=== PATIENT | male | born 1995 | race Caucasian/White ===

== ENCOUNTER 2018-09-29 03:12 | Emergency (ER) | payer OTHER | END 2018-09-29 05:47 | disposition home or self-care (01) | LOC: M ED 03:12 | DX: S40.011A Contusion of right shoulder, initial encounter (principal); V86.7 Person on outside of special all-terrain or other off-road motor vehicle injured in nontraffic accident; Y92.138 Other place on military base as the place of occurrence of the external cause; Z88.8 Allergy status to other drugs, medicaments and biological substances | CPT/HCPCS: 71046 ==

== ENCOUNTER 2018-10-18 11:37 | Emergency (ER) | payer OTHER ==
[~2018-10-18] VITALS: Ht 180.3 cm; Wt 78.6 kg
[~2018-10-18 11:37] MED LIST: MULT1TAB9 PO
[2018-10-18] MEDS ORDERED: ACETAMINOPHEN 325 MG TAB PO ONE (12:30)
[2018-10-18] MEDS ORDERED: cefTRIAXone SOD 1 GM in D5W MINI-BAG PLUS 50 ML IV ONE (12:30)
[2018-10-18] MEDS ORDERED: NS 1,000 ML IV ONE (12:30)
[2018-10-18 12:42] LABS: BASO % 0.2 % (0.0-1.0); HEMATOCRIT 46.1 % (42.0-52.0); LYMPH # 0.6 10^3/uL (1.5-6.5); LYMPH % 6.4 % (24.0-44.0); MEAN CORPUSCULAR HEMOGLOBIN 28.7 pg (27.0-33.0); MEAN CORPUSCULAR HGB CONC 32.5 g/dl (32.0-36.5); MEAN CORPUSCULAR VOLUME 88.3 fl (80.0-96.0); MONO # 1.1 10^3/uL (0.0-0.8); MONO % 10.8 % (0.0-5.0); NEUTROPHILS # 8.2 10^3/uL (1.8-7.7); NEUTROPHILS % 82.2 % (36.0-66.0); PLATELET COUNT, AUTOMATED 210 10^3/uL (150-450); RED BLOOD COUNT 5.22 10^6/uL (4.30-6.10); WHITE BLOOD COUNT 9.9 10^3/uL (4.0-10.0)
[2018-10-18 13:16] LABS: BLOOD UREA NITROGEN 10 MG/DL (7-18); CREATININE FOR GFR 1.05 MG/DL (0.70-1.30); GLUCOSE, FASTING 90 MG/DL (70-100)
[2018-10-18 13:17] LABS: ALBUMIN 4.3 GM/DL (3.2-5.2); ALT/SGPT 18 U/L (12-78); BILIRUBIN,DIRECT < 0.1 MG/DL (0.0-0.2); BILIRUBIN,TOTAL 0.4 MG/DL (0.2-1.0); CALCIUM LEVEL 9.3 MG/DL (8.5-10.1); CARBON DIOXIDE LEVEL 26 MEQ/L (21-32); CHLORIDE LEVEL 103 MEQ/L (98-107); GLOMERULAR FILTRATION RATE > 60.0 (>60); POTASSIUM SERUM 4.3 MEQ/L (3.5-5.1); SODIUM LEVEL 137 MEQ/L (136-145); TOTAL PROTEIN 8.3 GM/DL (6.4-8.2)
[2018-10-18 13:47] LABS: APPEARANCE, URINE CLEAR (CLEAR); BACTERIA, URINE AUTO NEGATIVE (NEGATIVE); BILIRUBIN, URINE AUTO NEGATIVE (NEGATIVE); BLOOD, URINE BLOOD 2+ (NEGATIVE); COLOR, URINE YELLOW (YELLOW); GLUCOSE, URINE (UA) AUTO NEGATIVE (NEGATIVE); KETONE, URINE AUTO TRACE mg/dL (NEGATIVE); LEUKOCYTE ESTERASE, URINE AUTO NEGATIVE (NEGATIVE); MUCUS, URINE SMALL (NEGATIVE); NITRITE, URINE AUTO NEGATIVE (NEGATIVE); PROTEIN, URINE AUTO NEGATIVE (NEGATIVE); RBC, URINE AUTO 12 /HPF (0-3); SPECIFIC GRAVITY URINE AUTO 1.026 (1.002-1.035); SQUAMOUS EPITHELIAL CELL UR AU 0 /HPF (0-6); UROBILINOGEN, URINE AUTO 0.2 mg/dL (0.0-2.0); WBC, URINE AUTO 3 /HPF (0-3)
[2018-10-18 15:18] LABS: INFLUENZA A AMPLIFICATION NEGATIVE (NEGATIVE); INFLUENZA B AMPLIFICATION NEGATIVE (NEGATIVE)
--- NOTE | 2018-10-18 15:31 | REP ---
Nickel: Hematuria. Technique: Real time brice scale ultrasound examination using curved array transducer. Findings: Bilateral kidneys are normal in contour, size, echogenicity, and reniform shape without hydronephrosis, obvious nephrolithiasis, cystic or renal mass lesion. No perinephric fluid collection identified. Right kidney measures 11.7 x 6.7 x 4.6 cm. Left kidney measures 11.4 x 6.0 x 6.1 cm. Incidental splenomegaly is suggested with the spleen measuring approximately 11.2 x 3.7 x 10.9 cm (splenic index = 455). Impression: 1. Essentially normal appearance the bilateral kidneys without hydronephrosis. 2. Mild splenomegaly. Electronically Signed by Diogo Claudio MD 10/18/2018 03:23 P
[2018-10-18] MEDS ORDERED: KEFL500C17 PO (15:36)
[2018-10-18] MEDS ORDERED: ZOFR4TAB14 PO (15:36)
[2018-10-18] MEDS ORDERED: IBUP-1022 PO (15:36)
[2018-10-18] MEDS ORDERED: KETOROLAC 30 MG/ML VIAL (J1885) IV ONE (15:45)
[2018-10-18] MEDS ORDERED: ONDANSETRON 4MG/2ML VIAL (J2405) IV ONE (15:45)
[2018-10-18 15:48] VITALS: BP 116/60
--- NOTE | 2018-10-19 07:44 | ED PDOC ---
Post-Departure Follow-Up dr santos faxed formal report of renal us for fu Adalid Purdy MD Oct 19, 2018 07:44
== END 2018-10-18 16:24 | disposition home or self-care (01) ==
LOC: M ED 11:37
DX: R50.9 Fever, unspecified (principal); J02.9 Acute pharyngitis, unspecified; R31.29 Other microscopic hematuria; R16.1 Splenomegaly, not elsewhere classified; Z79.899 Other long term (current) drug therapy; Z91.89 Other specified personal risk factors, not elsewhere classified
CPT/HCPCS: 76775; 80048; 80076; 81001; 83605; 85025; 87040; 87086; 87502; 87880; 93041; 96365; 96374; 96375; 99284; J0696; J1885; J2405

== ENCOUNTER 2018-10-22 17:24 | Emergency (ER) | payer OTHER ==
[~2018-10-22] VITALS: Ht 180.3 cm; Wt 78.6 kg
[~2018-10-22 17:24] MED LIST changes: +IBUP-1022 PO; +KEFL500C17 PO; +ZOFR4TAB14 PO
[2018-10-22] MEDS ORDERED: LIDOCAINE VISCOUS 2% SOLN 15ML UDC SSP STA (19:59)
[2018-10-22] MEDS ORDERED: valACYclovir HCL 500 MG TAB PO ONE (20:00)
[2018-10-22 20:09] LABS: HEMATOCRIT 42.9 % (42.0-52.0); MEAN CORPUSCULAR HEMOGLOBIN 28.2 pg (27.0-33.0); MEAN CORPUSCULAR HGB CONC 32.6 g/dl (32.0-36.5); MEAN CORPUSCULAR VOLUME 86.5 fl (80.0-96.0); PLATELET COUNT, AUTOMATED 213 10^3/uL (150-450); RED BLOOD COUNT 4.96 10^6/uL (4.30-6.10); WHITE BLOOD COUNT 5.5 10^3/uL (4.0-10.0)
[2018-10-22 20:23] LABS: APPEARANCE, URINE CLEAR (CLEAR); BACTERIA, URINE AUTO NEGATIVE (NEGATIVE); BILIRUBIN, URINE AUTO NEGATIVE (NEGATIVE); BLOOD, URINE BLOOD 2+ (NEGATIVE); COLOR, URINE YELLOW (YELLOW); GLUCOSE, URINE (UA) AUTO NEGATIVE (NEGATIVE); KETONE, URINE AUTO 1+ mg/dL (NEGATIVE); LEUKOCYTE ESTERASE, URINE AUTO NEGATIVE (NEGATIVE); MUCUS, URINE SMALL (NEGATIVE); NITRITE, URINE AUTO NEGATIVE (NEGATIVE); PROTEIN, URINE AUTO NEGATIVE (NEGATIVE); RBC, URINE AUTO 2 /HPF (0-3); SPECIFIC GRAVITY URINE AUTO 1.018 (1.002-1.035); SQUAMOUS EPITHELIAL CELL UR AU 0 /HPF (0-6); UROBILINOGEN, URINE AUTO 0.2 mg/dL (0.0-2.0); WBC, URINE AUTO 2 /HPF (0-3)
[2018-10-22 20:37] LABS: ATYPICAL LYMPH 7 % (0-5); LYMPHOCYTES 29 % (16-52); METAMYELOCYTES 1 % (0-0); MONOCYTES 7 % (0-8); NEUTROPHILS 56 % (35-75); PLATELET ESTIMATE NORMAL (NORMAL)
[2018-10-22] MEDS ORDERED: VALT1TAB PO (20:40)
[2018-10-22] MEDS ORDERED: LIDO1SOL7 PO (20:40)
[2018-10-22] MEDS ORDERED: AMOX500C PO (20:43)
[2018-10-22] MEDS ORDERED: AMOXICILLIN 500 MG CAP PO ONE (20:45)
[2018-10-22 21:18] VITALS: BP 109/56
[2018-10-22 22:03] LABS: CHLAMYDIA DNA AMPLIFICATION NEGATIVE (NEGATIVE); GC DNA AMPLIFICATION NEGATIVE (NEGATIVE)
[2018-10-25 00:08] LABS: HSV-1 DNA Positive (Negative); HSV-2 DNA Negative (Negative)
== END 2018-10-22 21:31 | disposition home or self-care (01) ==
LOC: M ED 17:24
DX: B00.9 Herpesviral infection, unspecified (principal); K12.1 Other forms of stomatitis; N48.5 Ulcer of penis; J02.8 Acute pharyngitis due to other specified organisms; Z86.79 Personal history of other diseases of the circulatory system; Z88.8 Allergy status to other drugs, medicaments and biological substances; Z79.2 Long term (current) use of antibiotics; Z79.899 Other long term (current) drug therapy

== ENCOUNTER 2020-01-04 00:01 | Emergency (ER) | payer OTHER ==
[~2020-01-04] VITALS: Ht 180.3 cm; Wt 76.6 kg
[~2020-01-04 00:01] MED LIST changes: +AMOX500C PO; +LIDO2SOL17 PO; +VALT1TAB PO
[2020-01-04] MEDS ORDERED: PEPT262T2 PO (00:06)
[2020-01-04] MEDS ORDERED: ONDANSETRON 4MG/2ML VIAL (J2405) IV ONE (01:45)
[2020-01-04] MEDS ORDERED: NS 1,000 ML IV ONE (01:45)
[2020-01-04 03:07] LABS: BASO % 0.2 % (0.0-1.0); EOS % 0.1 % (0.0-3.0); HEMATOCRIT 46.1 % (42.0-52.0); HEMOGLOBIN 14.3 g/dl (13.5-17.5); LYMPH # 0.4 10^3/uL (1.5-5.0); LYMPH % 2.2 % (24.0-44.0); MEAN CORPUSCULAR VOLUME 90.4 fl (80.0-96.0); MONO # 0.7 10^3/uL (0.0-0.8); MONO % 4.4 % (0.0-5.0); NEUTROPHILS # 14.9 10^3/uL (1.5-8.5); NEUTROPHILS % 92.7 % (36.0-66.0); PLATELET COUNT, AUTOMATED 250 10^3/uL (150-450); WHITE BLOOD COUNT 16.1 10^3/uL (4.0-10.0)
[2020-01-04 03:31] LABS: ALBUMIN 4.1 GM/DL (3.2-5.2); BILIRUBIN,DIRECT 0.2 MG/DL (0.0-0.2); BILIRUBIN,TOTAL 0.9 MG/DL (0.2-1.0); TOTAL PROTEIN 7.7 GM/DL (6.4-8.2)
[2020-01-04] MEDS: READI-CAT 2 PO SCH ×2 (04:15→05:19)
--- NOTE | 2020-01-04 06:23 | REPVR ---
PROCEDURE INFORMATION: Exam: CT Abdomen And Pelvis Without Contrast Exam date and time: 01/04/2020 6:00 AM Age: 24 years old Clinical indication: Abdominal pain; Localized; Left; Additional info: Left sided abd pain/bloody diarrhea TECHNIQUE: Imaging protocol: Computed tomography of the abdomen and pelvis without contrast. Radiation optimization: All CT scans at this facility use at least one of these dose optimization techniques: automated exposure control; mA and/or kV adjustment per patient size (includes targeted exams where dose is matched to clinical indication); or iterative reconstruction. COMPARISON: RENAL US 10/18/2018 2:46 PM FINDINGS: Liver: Normal. No mass. Gallbladder and bile ducts: Normal. No calcified stones. No ductal dilation. Pancreas: Normal. No ductal dilation. Spleen: Normal. No splenomegaly. Adrenals: Normal. No mass. Kidneys and ureters: Normal. No hydronephrosis. Stomach and bowel: Much of the colon is collapsed or contracted with no significant colonic stool and no definite distal intracolonic fluid. Appendix: There are no changes of appendicitis. A normal appendix is not seen. Intraperitoneal space: Unremarkable. No free air. No significant fluid collection. Vasculature: Unremarkable. No abdominal aortic aneurysm. Lymph nodes: Unremarkable. No enlarged lymph nodes. Bladder: Unremarkable as visualized. Reproductive: Unremarkable as visualized. Bones/joints: Unremarkable. No acute fracture. Soft tissues: Unremarkable. Other findings: Paucity of abdominal fat. IMPRESSION: Negative CT abdomen/pelvis. Electronically signed by: Jamin Forrest On 01/04/2020 06:22:55 AM
[2020-01-04 06:45] VITALS: BP 115/56
[2020-01-04] MEDS ORDERED: ONDA4TAB6 PO (07:11)
== END 2020-01-04 07:27 | disposition home or self-care (01) ==
LOC: M ED 00:01
DX: K52.9 Noninfective gastroenteritis and colitis, unspecified (principal); R50.9 Fever, unspecified; Z79.899 Other long term (current) drug therapy
CPT/HCPCS: 74176; 80047; 80076; 81001; 83690; 85025; 87086; 87507; 99284; J2405